=== PATIENT | female | born 1995 | race African-American/Black ===

== ENCOUNTER 2016-11-29 17:16 | Emergency (ER) | payer OTHER ==
[~2016-11-29] VITALS: Ht 170.2 cm; Wt 73.1 kg
[2016-11-29 17:27] VITALS: BP 117/85; TEMP 37.5; Ht 170.2 cm; Wt 73.1 kg
[2016-11-29] MEDS ORDERED: METH4PAK PO (18:18)
--- NOTE | 2016-11-29 18:18 | EMERGENCY ROOM VISIT NOTE ---
ED Visit Note First contact with patient: 17:51 Chief Complaint: Skin Irritation History of Present Illness: Patient is a 21-year-old female who presents to the emergency department for evaluation of a rash throughout her body. She reports that she initially noticed an isolated patch of a rash to the LEFT arm. She reports that over the last few weeks she is had spreading of the rash to her chest and back. She also noticed the rash on her face. She had been using topical antifungal cream at the recommendation of her mother as they were concerned that this was ringworm. The patient complains of occasional itchiness. She has used no medications, specifically in a drill to this point. She rates her current discomfort as a 0/10. She denies any changes in soaps, detergents, colognes, perfumes, or other environmental factors. She reports no chest pain, palpitations, throat swelling, tongue swelling, shortness of breath , wheezing, or stridor. The patient denies any recent upper respiratory infections. She's had no fevers. Otherwise, she feels well. Medications: Reviewed and discussed with the patient. Allergies: No known allergies. PMH: No pertinent past medical history. SHx: Patient is a 21-year-old female [employer] student who lives with roommate' s. ROS: All pertinent positive and negative review of systems are appropriately documented in the History of Present Illness. Physical Exam: VITAL SIGNS - Vital signs and nursing notes were reviewed. GENERAL - 21-year-old female appearing her stated age. Communicates well with provider and answers questions appropriately. SKIN - isolated herald patch appreciated to the anterior surface of the LEFT upper arm. Multiple small macular patches noted throughout the chest and back. No petechiae or palpable purpura appreciated. No lymphangitic streaking or warmth to touch. HEAD - Normocephalic, Atraumatic. EYES - PERRL with EOMI bilaterally. Without periorbital edema. Without subconjunctival hemorrhage. Palpebral conjunctiva pink and moist with no injection. EARS - No deformities of external structures noted on gross examination bilaterally. No hemotympanum present. No tympanic perforation noted. Handle of malleus, umbo, cone of light, pars tensa/flaccid all easily visualized. NOSE - Midline and without cyanosis. No epistaxis or clear watery discharge noted. eptum midline without deviation. No septal hematoma noted. No overlying ecchymosis noted. MOUTH/OROPHARYNX - Without perioral cyanosis. No angioedema appreciated. Tongue midline with equal elevation of palate bilaterally. No blood noted in the oropharynx. No tonsillar hypertrophy, erythema, or exudates noted. Good dentition noted. NECK - Supple to palpation. JVD noted. LUNGS - Chest wall symmetric without accessory muscle use, intercostals retractions, or central cyanosis. Without stridor. No active wheezes. Normal vesicular breath sounds CTA B/L. No rales or rhonchi appreciated. CARDIAC - RRR with S1/S2. No murmur, rubs, or gallops appreciated. NEUROLOGIC - Cranial nerves II through XII grossly intact. Sensory intact to light touch throughout. PSYCH - A&Ox3 and cooperates fully with examiner. Pt is very pleasant and interacts well with examiner. ED Course: Patient was seen and evaluated by myself. I had a lengthy discussion with the patient regarding symptoms. The patient was provided a short course of prednisone to help with her symptoms of itchiness. In addition, she was encouraged to utilize Benadryl [id number] for symptoms as well. She was educated on symptomatically management for her rash. She was educated on worrisome symptoms for return visit to the emergency department. Patient discharged home afebrile and in good condition. In the evaluation and treatment of this patient, the following differential diagnoses were considered: Cellulitis, dermatitis, amongst others. Impression: Pityriasis Rosea Discharge Instructions: You have been seen in the emergency department today for your rash - Pityriasis Rosea. You have been prescribed a Medrol Dosepak. This is a steroid which will help decrease your inflammation, redness, and itch. Take the medicine as prescribed. Take the ENTIRE 6 day course of the steroids. You should take Benadryl (diphenhydramine) 25-50 mg every 6 hours for the next 3 days. You can find this medicine [id number]. Benadryl can help reduce your symptoms. You should take it for the next 3 days or until your symptoms have subsided. Be aware that Benadryl can make you drowsy. Return for any changing or worsening symptoms. Current/Historical Medications Scheduled Methylprednisolone (Medrol Dosepak), 0 PO DAILY Allergies Coded Allergies: No Known Allergies (Unverified , 11/29/16) Vital Signs Date Time Temp Pulse Resp B/P Pulse Ox O2 Delivery O2 Flow Rate FiO2 11/29/16 18:55 84 18 98 Room Air 11/29/16 17:27 37.5 99 18 117/85 97 Departure Information Impression Primary Impression: Pityriasis rosea Dispostion Home / Self-Care Condition GOOD Prescriptions Methylprednisolone (MEDROL DOSEPAK) 4 Mg Sunil 0 PO DAILY, #1 PKT Prov: Raymundo Wallace, THOMAS 11/29/16 Referrals No Doctor, Assigned (PCP) Patient Instructions ED Pityriasis Rosea, My [facility] Additional Instructions You have been seen in the emergency department today for your rash - Pityriasis Rosea. You have been prescribed a Medrol Dosepak. This is a steroid which will help decrease your inflammation, redness, and itch. Take the medicine as prescribed. Take the ENTIRE 6 day course of the steroids. You should take Benadryl (diphenhydramine) 25-50 mg every 6 hours for the next 3 days. You can find this medicine [id number]. Benadryl can help reduce your symptoms. You should take it for the next 3 days or until your symptoms have subsided. Be aware that Benadryl can make you drowsy. Return for any changing or worsening symptoms.
[2016-11-29 18:55] VITALS: PULSE 84; O2SAT 98
== END 2016-11-29 18:55 | disposition home or self-care (01) ==
LOC: C.EDB 17:17 → C.EDD 18:55
DX: L42 Pityriasis rosea (principal)

== ENCOUNTER 2018-01-13 15:36 | Emergency (ER) | payer OTHER ==
[~2018-01-13] VITALS: Ht 170.2 cm; Wt 70.2 kg
[2018-01-13 15:38] VITALS: BP 113/77; PULSE 78; TEMP 36.5; O2SAT 100; Ht 170.2 cm; Wt 70.2 kg
[2018-01-13] MEDS ORDERED: ACET-749 PO (15:45)
[2018-01-13] MEDS ORDERED: FLUCONAZOLE 100 MG TAB PO STA (15:52)
--- NOTE | 2018-01-13 15:59 | EMERGENCY ROOM VISIT NOTE ---
ED Visit Note First contact with patient: 15:42 CHIEF COMPLAINT: "I have a yeast infection" HISTORY OF PRESENT ILLNESS: This 22-year-old female patient presents to the emergency department, ambulatory, complaining of copious cottage cheese like discharge and itchiness in her vulvovaginal area. The patient states 2 days ago , she had unprotected sex without showering before or after. She states she does have a history of similar yeast infections in this same scenario in the past. She did not use any OTC remedies, as she states Monistat often makes her symptoms worse. She has been treated in the past with Diflucan, and does request this medication. She has not been treated recently or for this infection. The patient is sexually active with one male partner, and states she does get routine STD testing, her most recent testing was performed 2 months ago. She denies any chance of , although she does not use control, nor does she use protection with intercourse. The patient denies any new sexual partners in several months. She denies any burning with urination, dysuria, urinary frequency, urinary hesitancy, or hematuria. She denies any abdominal pain or pain with intercourse. She denies any recent illness or fever. She denies any green/yellow vaginal discharge. Her last menstrual period was December 17, and she states this was normal for her. REVIEW OF SYSTEMS: A 10 system review of systems was performed with positives and pertinent negatives listed in the history of present illness. All other systems were reviewed and are negative. ALLERGIES: None MEDICATIONS: None PMH: None SOCIAL HISTORY: The patient lives locally with her roommate. She is a [employer] student. She denies drug, alcohol use. She admits to smoking approximately 1 cigarette per week. PHYSICAL EXAM: VITALS: Vitals are noted on the nurse's note and reviewed by myself. Vital signs stable. GENERAL: This is a 22-year-old black female, in no acute distress, nondiaphoretic, well-developed well-nourished. SKIN: The skin was without rashes, erythema, edema, or bruising. There is no tenting of the skin. Capillary reflex less than 2 seconds. NECK: Supple without nuchal rigidity. No lymphadenopathy. No thyromegaly. Cervical spine is nontender. No JVD. HEART: Regular rate and rhythm without murmurs gallops or rubs. LUNGS: Clear to auscultation bilaterally without wheezes, rales or rhonchi. No dullness to percussion. No retractions or accessory muscle use. ABDOMEN: Positive bowel sounds x 4. Normal tympanic percussion. Soft, nontender, without masses or organomegaly. Guerra sign negative. No guarding or rebound tenderness. The patient declined pelvic examination. MUSCULOSKELETAL: No muscle atrophy, erythema, or edema noted. Full range of motion without joint tenderness in all extremities. No tenderness to palpation. Normal gait. Strength 5/5 throughout. NEURO: Patient was alert and oriented to person place and time. Normal sensation to light and sharp touch. No focal neurological deficits. EMERGENCY DEPARTMENT COURSE: This is a 22-year-old female patient presents to the emergency department with significant past medical history for vulvovaginal candidiasis associated with unprotected sex. Patient states she has been having symptoms consistent with candidiasis for the past 2 days following intercourse with her boyfriend. She has been treated successfully in the past with Diflucan, and has not been treated recently. I did offer a pelvic examination and STD testing, the patient declines, preferring to have the testing performed outpatient [facility]. I offered to perform a urinalysis and test, the patient declines this as well. I discussed the risks associated with untreated UTI or unknown and the patient voices her understanding. The patient was given 150 mg Diflucan here in the emergency department. She was encouraged to follow-up outpatient with [facility]. Discharge instructions reviewed, patient was discharged home in good condition. I attest that I have personally reviewed the patient's current medication list. Patient was found to have normal blood pressure on screening and does not require follow-up. Etiologies such as , STD, UTI, candidiasis, trauma, infection, as well as others were entertained. DIAGNOSIS: Vulvovaginal candidiasis The chart was completed utilizing [employer] Speech voice recognition software. Grammatical errors, random word insertions, pronoun errors, and incomplete sentences are an occasional consequence of this system due to software limitations, ambient noise, and hardware issues. Any formal questions or concerns about the content, text, or information contained within the body of this dictation should be directly addressed to the provider for clarification. Current/Historical Medications Scheduled PRN Acetaminophen/Codeine (Tylenol W/Codeine #3), 1 TAB PO DIRECTED PRN for Pain Allergies Coded Allergies: No Known Allergies (Unverified , 01/13/18) Vital Signs Date Time Temp Pulse Resp B/P (MAP) Pulse Ox O2 Delivery O2 Flow Rate FiO2 01/13/18 15:38 36.5 78 16 113/77 100 Room Air Departure Information Impression Primary Impression: Vaginal candidiasis Dispostion Home / Self-Care Condition GOOD Referrals [facility] (PCP) Patient Instructions ED Vaginal Infec Fungal [place], My [facility] Additional Instructions You were seen in the emergency department today for vulvovaginal candidiasis. You were treated with 1 dose of Diflucan. This should treat your infection, however if it recurs, please follow-up with [facility], as I do recommend a vaginal examination. Ibuprofen(Motrin, Advil) may be used for fever or pain. Use 600mg every six hours as needed. Take with food. Avoid using more than 2400mg in a 24 hour period. Do not use 2400mg per day for more than three consecutive days without physician direction. Prolonged inappropriate use can lead to stomach upset or ulcers. (AND/OR) Acetaminophen(Tylenol) may be used for fever or pain. Use 1000mg every six hours as needed. Avoid using more than 3000mg in a 24 hour period. Please always use protection and consider control, as we did discuss the risks of STD transmission and . Follow-up with [facility] in 1 week for reevaluation and STD testing.
[2018-01-13] MEDS ORDERED: FLUCONAZOLE 50 MG TAB ONE (16:02)
== END 2018-01-13 16:10 | disposition home or self-care (01) ==
LOC: C.EDB 15:38 → C.EDD 16:10
DX: B37.3 Candidiasis of vulva and vagina (principal); Z86.19 Personal history of other infectious and parasitic diseases